=== PATIENT | male | born 1955 | race Caucasian/White ===

== ENCOUNTER 2017-04-09 07:12 | Day surgery (SDC) | payer BC ==
[2017-04-09] MEDS ORDERED: LACTATED RINGERS 1,000 ML IV ONE (07:38)
--- NOTE | 2017-04-09 07:40 | P.OP ---
Date of Procedure: 04/09/17 Preoperative Diagnosis: Screening. Family history of colon Ca in a parent. Postoperative Diagnosis: Procedure(s) Performed: Colonoscopy Implants: Anesthesia: MAC Surgeon: Dany Bajwa Estimated Blood Loss (ml): 0 Condition: stable Disposition: same day Indications for Procedure: Screening. Family history of colon CA in a parent. Operative Findings: Description of Procedure:
[2017-04-09 07:44] LABS: Glucose,Whole Blood 110 mg/dL (75-99)
[2017-04-09] MEDS ORDERED: LIDOCAINE 1% INJ 10MG/ML (20 ML MDV) ONE (07:44)
[2017-04-09] MEDS ORDERED: PROPOFOL 10 MG/ML 20 ML VIAL IV ONE (07:44)
[2017-04-09 07:47] VITALS: TEMP 98.2
--- NOTE | 2017-04-09 08:16 | P.OP ---
Date of Procedure: 04/09/17 Preoperative Diagnosis: Screening. Family history of colon CA in a a . parent Postoperative Diagnosis: Minute cecal polyp. Small sigmoid polyp. Minute the rectal polyp. Procedure(s) Performed: Colonoscopy and snare polypectomy 3. Implants: Anesthesia: MAC Surgeon: Dany Bajwa Estimated Blood Loss (ml): 0 Pathology: other (Polyps 3.) Condition: stable Disposition: same day Indications for Procedure: Screening. Family history of colon CVA in his father. Operative Findings: Minute the cecal polyp. Small sigmoid polyp. Minute rectal polyp. Description of Procedure: With the patient in the left lateral position rectal digital examination was normal. Prostate was surgically absent. No palpable masses. The video colonoscope was inserted transanally and advanced all the way to the cecum which was entered and well visualized. The mucosa were thoroughly examined. Findings as above. The cecal polyp was about the 2-3 mm in diameter. The sigmoid polyp was about 3-4 mm in diameter. The rectal polyp was about 2 mm in diameter. The rectal polyp was cauterized the it being so small after attempt at removal with the snare cautery. Recommend a high-fiber diet. Follow-up colonoscopy in about 5 years so.
[2017-04-09 08:29] VITALS: RESP 18
[2017-04-09 08:31] LABS: Glucose,Whole Blood 97 mg/dL (75-99)
[2017-04-09 08:40] VITALS: BP 104/62; PULSE 74
== END 2017-04-09 08:51 | disposition home or self-care (01) ==
LOC: ORWHC2ENDO 07:12
PROVIDERS: ATTEND Surgery
DX: Z12.11 Encounter for screening for malignant neoplasm of colon (principal); Z80.0 Family history of malignant neoplasm of digestive organs; D12.0 Benign neoplasm of cecum; D12.5 Benign neoplasm of sigmoid colon; K62.1 Rectal polyp; I10 Essential (primary) hypertension; E11.9 Type 2 diabetes mellitus without complications; Z79.899 Other long term (current) drug therapy; Z79.84 Long term (current) use of oral hypoglycemic drugs
CPT/HCPCS: 88305; 45385; J2001; J2704

== ENCOUNTER → 2019-08-29 | Outpatient (CLI) | payer BC ==
--- NOTE | 2019-08-29 11:53 | MR ---
EXAMINATION TYPE: MR brain wo/w con DATE OF EXAM: 08/29/2019 COMPARISON: NONE HISTORY: TIA, neurologic deficits. TECHNIQUE: Multiplanar, multisequence images of the brain and brainstem is performed without and with IV contras t, utilizing 10.5 mL intravenous Gadavist . FINDINGS: Diffusion weighted images demonstrate no evidence of a recent infarct or other diffusion ab normality. There is no extra-axial fluid collection. There are few scattered foci of T2/FLAIR hyperi ntensity within the deep white matter, particularly of the left frontal lobe such as on axial fat sat image 15 measuring up to 2 mm in size. There are approximately 9 foci within the left cerebral hemis phere and 6 foci within the right cerebral hemisphere, predominating within the subcortical distribut ion. Mild nonspecific periventricular T-2/flair hyperintensity is also seen. This is present within t he periatrial posterior white matter. No infratentorial white matter changes are seen. The ventricula r system and cisternal spaces are symmetrically mildly prominent compatible with mild degree age-rela chava volume loss. The brain volume is age appropriate. Midline structures demonstrate normal morphology. The craniocervical junction appears within normal limits. 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 No cerebral aqueduct n arrowing. No significant impression upon the superior tectum. Contrast images demonstrate no abnormal enhancement. The dural venous sinuses appear patent. The visualized sinuses are clear and the globes are intact. IMPRESSION: 1. No acute infarct in this patient with symptoms of transient ischemic attack. 2. Mild burden nonspecific white matter change within the supratentorial white matter. This is seen i n the subcortical and periventricular (posterior periatrial) distribution, most commonly on the basis of chronic microangiopathy. 3. No abnormal intracranial enhancement.
--- NOTE | 2019-08-29 12:37 | ECHOF ---
Referral Reason:TIA MEASUREMENTS -------- HEIGHT: 180.3 cm WEIGHT: 104.3 kg BP: RVIDd: 3.8 cm (< 3.3) IVSd: 1.6 cm (0.6 - 1.1) LVIDd: 4.3 cm (3.9 - 5.3) LVPWd: 1.7 cm (0.6 - 1.1) IVSs: 2.1 cm LVIDs: 2.4 cm LVPWs: 2.0 cm LAESV Index (A-L): 28.46 ml/m Ao Diam: 2.8 cm (2.0 - 3.7) AV Cusp: 1.8 cm (1.5 - 2.6) LA Diam: 3.8 cm (2.7 - 3.8) TAPSE: 2.7 cm MV EXCURSION: 15.892 mm (> 18.000) MV EF SLOPE: 79 mm/s (70 - 150) EPSS: 0.6 cm MV E Kevin: 0.62 m/s MV DecT: 219 ms MV A Kevin: 0.92 m/s MV E/A Ratio: 0.68 RAP: 5.00 mmHg RVSP: 41.67 mmHg FINDINGS -------- Sinus rhythm. This was a technically adequate study. The left ventricular size is normal. There is moderate concentric left ventricular hypertrophy. O verall left ventricular systolic function is normal with, an EF between 55 - 60 %. The diastolic fi lling pattern is normal for the age of the patient 10.71. The right ventricle is mild to moderately enlarged. The right ventricular systolic function is mild ly impaired. Normal LA size by volume 22+/-6 ml/m2. The right atrial size is normal. Interatrial and interventricular septum intact. There is mild aortic valve sclerosis. There is no evidence of aortic regurgitation. There is no e vidence of aortic stenosis. There is trace mitral regurgitation. Mild tricuspid regurgitation present. There is mild pulmonary hypertension. The right ventricular systolic pressure, as measured by Doppler, is 41.67mmHg. There is no pulmonic regurgitation present. The aortic root size is normal. IVC Not well visulized. There is no pericardial effusion. CONCLUSIONS -------- 1. Sinus rhythm. 2. This was a technically adequate study. 3. The left ventricular size is normal. 4. There is moderate concentric left ventricular hypertrophy. 5. Overall left ventricular systolic function is normal with, an EF between 55 - 60 %. 6. The diastolic filling pattern is normal for the age of the patient 10.71 7. The right ventricle is mild to moderately enlarged. 8. The right ventricular systolic function is mildly impaired. 9. Normal LA size by volume 22+/-6 ml/m2. 10. The right atrial size is normal. 11. Interatrial and interventricular septum intact. 12. There is mild aortic valve sclerosis. 13. There is no evidence of aortic regurgitation. 14. There is no evidence of aortic stenosis. 15. There is trace mitral regurgitation. 16. Mild tricuspid regurgitation present. 17. There is mild pulmonary hypertension. 18. The right ventricular systolic pressure, as measured by Doppler, is 41.67mmHg. 19. There is no pulmonic regurgitation present. 20. The aortic root size is normal. 21. IVC Not well visulized. 22. There is no pericardial effusion. MEDIA PRODUCTION MANAGER: Doris Calvin RDCS
--- NOTE | 2019-08-29 12:58 | US ---
EXAMINATION TYPE: US carotid duplex BILAT DATE OF EXAM: 08/29/2019 COMPARISON: NONE CLINICAL HISTORY: TIA. EXAM MEASUREMENTS: RIGHT: Peak Systolic Velocity (PSV) cm/sec ----- Right CCA: 91.9 ----- Right ICA: 128.6 ----- Right ECA: 89.7 ICA/CCA ratio: 1.4 RIGHT: End Diastole cm/sec ----- Right CCA: 21.5 ----- Right ICA: 26.8 ----- Right ECA: 14.9 LEFT: Peak Systolic Velocity (PSV) cm/sec ----- Left CCA: 88.8 ----- Left ICA: 66.6 ----- Left ECA: 88.6 ICA/CCA ratio: 0.8 LEFT: End Diastole cm/sec ----- Left CCA: 22.8 ----- Left ICA: 17.1 ----- Left ECA: 18.2 VERTEBRALS (direction of flow): Right Vertebral: Antegrade Left Vertebral: Antegrade Rhythm: Normal No significant stenosis seen. minimal plaque noted. IMPRESSION: Findings approaching criteria for 50-69% stenosis within the right internal carotid rio ry, however findings do not yet meet criteria for hemodynamically significant stenosis within the keshia ateral internal or common carotid arteries. Criteria for Assigning % of Stenosis / Diameter reduction (Estimation based on the indirect measurements of the internal carotid artery velocities (ICA PSV). 1. Normal (no stenosis)=ICA PSV < 125 cm/s: ratio < 2.0: ICA EDV<40 cm/s. 2. Less than 50% stenosis=ICA PSV < 125 cm/s: ratio < 2.0: ICA EDV<40 cm/s. 3. 50 to 69% stenosis=ICA PSV of 125 to 230 cm/s: ration 2.0 ? 4.0: ICA EDV 40-100 cm/s. 4. Greater than 70% stenosis to near occlusion= ICA PSV > 230 cm/s: ratio > 4.0: ICA EDV > 100 cm/s. 5. Near occlusion= ICA PSV velocities may be low or undetectable: variable ratio and ICA EDV. 6. Total occlusion=unable to detect flow.
== END | disposition home or self-care (01) ==
LOC: RADMRIMAIN 10:46
PROVIDERS: ATTEND Internal Medicine Geriatric Medicine
DX: I08.1 Rheumatic disorders of both mitral and tricuspid valves (principal); I27.20 Pulmonary hypertension, unspecified; I73.9 Peripheral vascular disease, unspecified; R90.82 White matter disease, unspecified
CPT/HCPCS: 93306; 93880; 70553; A9585

== ENCOUNTER 2020-08-17 06:49 | Day surgery (SDC) | payer MEDICARE, BC ==
[2020-08-17] MEDS ORDERED: LACTATED RINGERS 1,000 ML IV ONE (07:04)
[2020-08-17 07:11] VITALS: TEMP 97.3
[2020-08-17] MEDS ORDERED: LIDOCAINE 1% (10MG/ML) FOR IV START INTRADERMA PRN (07:15)
[2020-08-17] MEDS ORDERED: LACTATED RINGERS 1,000 ML IV SCH (07:15)
[2020-08-17 07:18] LABS: Glucose,Whole Blood 116 mg/dL (75-99)
[2020-08-17] MEDS ORDERED: LIDOCAINE 1% INJ 10MG/ML (20 ML MDV) ONE (07:29)
[2020-08-17] MEDS ORDERED: PROPOFOL 10 MG/ML 20 ML VIAL IV ONE (07:29)
--- NOTE | 2020-08-17 07:37 | P.GSHP ---
History of Present Illness H&P Date: 08/17/20 Chief Complaint: Screening, history of colon polyps Patient today for elective colonoscopy. Patient's father had colon cancer. Patient has had polyps in the past. No current bowel complaints. Last colonoscopy approximately 5 years ago. Past Medical History Past Medical History: Cancer, Diabetes Mellitus, Hyperlipidemia, Hypertension Additional Past Medical History / Comment(s): PROSTATE CA History of Any Multi-Drug Resistant Organisms: None Reported Past Surgical History: Appendectomy Additional Past Surgical History / Comment(s): PROSTATE Past Anesthesia/Blood Transfusion Reactions: No Reported Reaction Past Psychological History: No Psychological Hx Reported Past Alcohol Use History: None Reported Past Drug Use History: None Reported - Past Family History Father Family Medical History: Cancer Additional Family Medical History / Comment(s): FATHER Medications and Allergies Home Medications Medication Instructions Recorded Confirmed Type Atorvastatin [Lipitor] 10 mg PO HS 04/09/17 08/17/20 History Liraglutide [Victoza 2-Rm] 1.2 mg SQ DAILY 04/09/17 08/17/20 History Metoprolol Tartrate 25 mg PO BID 04/09/17 08/17/20 History Pioglitazone [Actos] 15 mg PO BID 04/09/17 08/17/20 History metFORMIN HCL [Glucophage] 1,000 mg PO AC-BRKFST 04/09/17 08/17/20 History metFORMIN HCL [Glucophage] 500 mg PO AC-SUPPER 04/09/17 08/17/20 History Allergies Allergy/AdvReac Type Severity Reaction Status Date / Time No Known Allergies Allergy Verified 04/09/17 07:25 Surgical - Exam Vital Signs Temp Pulse Resp BP Pulse Ox 97.3 F L 89 18 172/89 99 08/17/20 07:10 08/17/20 07:10 08/17/20 07:10 08/17/20 07:10 08/17/20 07:10 Physical exam: General: Well-developed, well-nourished HEENT: Normocephalic, sclerae nonicteric Abdomen: Nontender, nondistended Extremities: No edema Neuro: Alert and oriented Results - Labs Abnormal Lab Results - Last 24 Hours (Table) 08/17/20 Range/Units 07:17 POC Glucose (mg/dL) 116 H (75-99) mg/dL Assessment and Plan (1) Colon cancer screening Narrative/Plan: Will proceed with colonoscopy at this time. Current Visit: Yes Status: Acute Code(s): Z12.11 - ENCOUNTER FOR SCREENING FOR MALIGNANT NEOPLASM OF COLON SNOMED Code(s): 353734584
--- NOTE | 2020-08-17 07:51 | P.PCN ---
Date of Procedure: 08/17/20 Procedure(s) Performed: PREOPERATIVE DIAGNOSIS: Colon cancer screening, first on history of colon polyps, family history of colon cancer father POSTOPERATIVE DIAGNOSIS: Normal exam PROCEDURE: Colonoscopy ANESTHESIA: MAC SURGEON: Casimiro Blas M.D. SPECIMENS: None ENDOSCOPIC PROCEDURE: The patient was placed on the endoscopy table in the left decubitus position. The Olympus colonoscope was inserted into the anus and passed under direct visualization to the base of the cecum. The appendiceal orifice was visualized. From that point the scope was slowly withdrawn inspecting all surfaces carefully. There were no neoplastic inflammatory or polypoid lesions throughout the cecum, ascending, transverse, descending, sigmoid and rectum. There was no visible diverticulosis noted. Digital rectal examination was normal. The patient was taken to the recovery room in stable condition per anesthesia guidelines. RECOMMENDATIONS: Resume diet. Follow-up colonoscopy 5 years.
[2020-08-17 08:07] VITALS: RESP 16
[2020-08-17 08:08] LABS: Glucose,Whole Blood 111 mg/dL (75-99)
[2020-08-17 08:14] VITALS: BP 120/80; PULSE 79
== END 2020-08-17 08:46 | disposition home or self-care (01) ==
LOC: ORWHC2ENDO 06:49
PROVIDERS: ATTEND Surgery
DX: Z12.11 Encounter for screening for malignant neoplasm of colon (principal); Z80.0 Family history of malignant neoplasm of digestive organs; Z86.010 Personal history of colon polyps; I10 Essential (primary) hypertension; E78.5 Hyperlipidemia, unspecified; E11.9 Type 2 diabetes mellitus without complications; Z85.46 Personal history of malignant neoplasm of prostate; Z90.79 Acquired absence of other genital organ(s); Z98.890 Other specified postprocedural states; Z80.9 Family history of malignant neoplasm, unspecified; Z79.84 Long term (current) use of oral hypoglycemic drugs; Z79.899 Other long term (current) drug therapy
CPT/HCPCS: G0105; J2001; J2704; 45378